=== PATIENT | female | born 1945 | race Caucasian/White ===

== ENCOUNTER 2022-02-14 14:59 | Outpatient (REF) | payer MEDICARE, SELFPAY ==
[2022-02-14 16:12] LABS: Rheumatoid Factor < 15.0 IU/mL (<15.0)
[2022-02-14 16:20] LABS: Erythrocyte Sedimentation Rate 2 MM/HR (0-20)
[2022-02-17 14:51] LABS: Anti Nuclear Antibody Pattern Nuclear, Centromere; Anti Nuclear Antibody Screen POSITIVE (NEGATIVE)
== END 2022-02-14 15:00 | disposition home or self-care (01) ==
LOC: HO.LAB 14:59
PROVIDERS: PCP Internal Medicine; Visit Provider Otolaryngology
DX: J30.89 Other allergic rhinitis (principal); L50.0 Allergic urticaria
CPT/HCPCS: 36415; 82785; 85652; 86003; 86038; 86039; 86431